=== PATIENT | female | born 1965 | race Two or more races ===

== ENCOUNTER 2017-03-28 09:14 | Inpatient (IN) | payer OTHER ==
[2017-03-28 09:57] VITALS: BMI 31.8
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
[2017-03-28] MEDS ORDERED: LOPERAMIDE HCL 2 MG CAPSULE PO PRN (10:20)
[2017-03-28] MEDS ORDERED: P-EPHED 60MG/TRIPROLIDI 2.5MG TABLET PO PRN (10:20)
[2017-03-28] MEDS ORDERED: chlordiazePOXIDE HCL 25 MG CAPSULE PO PRN (10:20)
[2017-03-28] MEDS ORDERED: MENTHOL/PHENOL 1 EACH UD MM PRN (10:20)
[2017-03-28] MEDS ORDERED: ACETAMINOPHEN 325 MG TABLET (FP) PO PRN (10:20)
[2017-03-28] MEDS ORDERED: MAGNESIUM HYDROX 2400MG/30ML ORAL SUSPENSION 30 ML CUP PO PRN (10:20)
[2017-03-28] MEDS ORDERED: NICOTINE POLACRILEX 4 MG GUM BUC PRN (10:20)
[2017-03-28] MEDS ORDERED: hydrOXYzine PAMOATE 50 MG CAPSULE (FP) PO PRN (10:20)
[2017-03-28] MEDS ORDERED: MAG HYDROX/AL HYDROX/SIMETH 30 ML UNIT-DOSE CUP PO PRN (10:20)
[2017-03-28] MEDS ORDERED: MAGNESIUM CITRATE 300 ML BOTTLE PO PRN (10:20)
[2017-03-28] MEDS ORDERED: guaiFENesin/D-METHORPHAN HB 10 ML UNIT-DOSE CUPS PO PRN (10:20)
[2017-03-28] MEDS ORDERED: INSULIN (NOVOLOG) ASPART 100 UNITS/ML 10ML VIAL ONE (11:36)
[2017-03-28] MEDS: INSULIN SLIDING SCALE (NOVOLOG) 1 VIAL SQ SCH ×3 (11:41→22:25)
[2017-03-28] MEDS ORDERED: chlordiazePOXIDE HCL 25 MG CAPSULE PO ONE (12:00)
[2017-03-28] MEDS: ALBUTEROL SO4 18 GM HFA INHALER IH PRN (12:16)
[2017-03-28] MEDS: levETIRAcetam 500 MG TABLET (FP) PO SCH ×2 (12:16→22:20)
[2017-03-28] MEDS: chlordiazePOXIDE HCL 25 MG CAPSULE PO SCH ×2 (17:40→23:08)
[2017-03-28 18:12] LABS: URINE APPEARANCE SLCLOUDY; URINE BILIRUBIN NEGATIVE (NEGATIVE); URINE BLOOD NEGATIVE (NEGATIVE); URINE COLOR AMBER; URINE GLUCOSE (UA) NEGATIVE (NEGATIVE); URINE KETONE NEGATIVE (NEGATIVE); URINE LEUK ESTERASE NEGATIVE (NEGATIVE); URINE NITRITE NEGATIVE (NEGATIVE); URINE PROTEIN NEGATIVE (NEGATIVE); URINE UROBILINOGEN 4.0 E.U/dl mg/dL (0.2-1.0)
[2017-03-28 20:57] LABS: URINE LEUK ESTERASE Negative (NEGATIVE)
[2017-03-28] MEDS: THIAMINE HCL 100 MG TABLET (FP) PO SCH (22:20)
[2017-03-29] MEDS: chlordiazePOXIDE HCL 25 MG CAPSULE PO SCH ×4 (05:17→22:19)
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
[2017-03-29] MEDS: INSULIN SLIDING SCALE (NOVOLOG) 1 VIAL SQ SCH ×4 (07:00→22:19)
[2017-03-29 10:15] LABS: MCH 28.7 pg (25.7-33.7); MCHC 31.3 g/dl (32.0-36.0); MEAN CELL VOLUME 91.7 fl (80-96); MEAN PLT VOLUME 9.1 fl (7.5-11.1); PLATELET COUNT 72 K/MM3 (134-434); RDW 21.8 % (11.6-15.6); WHITE BLOOD COUNT 4.3 K/mm3 (4.0-10.0)
[2017-03-29 10:18] LABS: ALBUMIN 1.9 g/dl (3.4-5.0); ANION GAP 10 (8-16); BILIRUBIN,TOTAL 2.2 mg/dL (0.2-1.0); CALCIUM 7.8 mg/dL (8.5-10.1); CO2 25 mmol/L (21-32); CREATININE 0.5 mg/dL (0.55-1.02); GLUCOSE,RANDOM 99 mg/dL (74-106); SGOT/AST 113 U/L (15-37); SGPT/ALT 52 U/L (12-78); TOT PROT 5.9 g/dl (6.4-8.2)
[2017-03-29 10:19] LABS: ALK PHOS 222 U/L (45-117)
[2017-03-29] MEDS: PRENATAL VITAMINS W/ FOLIC ACID TABLET (FP) PO SCH (10:53)
[2017-03-29] MEDS: levETIRAcetam 500 MG TABLET (FP) PO SCH ×2 (10:54→22:18)
[2017-03-29] MEDS: ALBUTEROL SO4 18 GM HFA INHALER IH PRN (10:56)
[2017-03-29] MEDS ORDERED: POTASSIUM CHLORIDE TABS 20 MEQ TABLET.ER (FP) PO ONE (11:18)
[2017-03-29 11:48] LABS: ANISOCYTOSIS 0; HYPOCHROMIA 2+; MACROCYTOSIS 0; MICROCYTOSIS 0; POLYCHROMASIA 0; TARGET CELLS 2+
[2017-03-29] MEDS ORDERED: INSULIN (NOVOLOG) ASPART 100 UNITS/ML 10ML VIAL ONE (11:57)
[2017-03-29] MEDS: ESCITALOPRAM OXALATE 10 MG TABLET (FP) PO SCH (11:58)
--- NOTE | 2017-03-29 12:47 | PN ---
[facility] CIWA - CIWA Score Nausea/Vomitin-Mild Nausea/No Vomiting Muscle Tremors: 3 Anxiety: 4-Mod. Anxious/Guarded Agitation: 3 Paroxysmal Sweats: 3 Orientation: 0-Oriented Tacttile Disturbances: 0-None Auditory Disturbances: 0-None Visual Disturbances: 0-None Headache: 0-None Present CIWA-Ar Total Score: 14 S Progress Note (SOAP) Subjective: Anxiety,tremors,sweating,interrupted sleep,restless Objective: 03/29/17 12:45 Vital Signs - 8 hr 03/29/17 03/29/17 06:49 11:36 Temperature 97.7 F 98 F Pulse Rate 74 85 Respiratory 18 18 Rate Blood Pressure 128/83 137/82 Laboratory Tests 03/28/17 03/28/17 03/28/17 10:38 16:36 17:58 WBC RBC Hgb Hct MCV MCH MCHC RDW Plt Count MPV Hypochromia Polychromasia Anisocytosis Microcytosis Macrocytosis Target Cells Sodium Potassium Chloride Carbon Dioxide Anion Gap BUN Creatinine Creat Clearance w eGFR POC Glucometer 197 130 Random Glucose Calcium Total Bilirubin AST ALT Alkaline Phosphatase Total Protein Albumin Urine Color Jayshree Urine Appearance Slcloudy Urine pH 6.0 Ur Specific [place] 1.018 Urine Protein Negative Urine Glucose (UA) Negative Urine Ketones Negative Urine Blood Negative Urine Nitrite Negative Urine Bilirubin Negative Urine Urobilinogen 4.0 e.u/dl H Ur Leukocyte Esterase Negative RPR Titer 03/28/17 03/29/17 03/29/17 21:33 05:16 07:40 WBC 4.3 RBC 3.70 Hgb 10.6 L Hct 33.9 MCV 91.7 MCH 28.7 MCHC 31.3 L RDW 21.8 H Plt Count 72 L MPV 9.1 Hypochromia 2+ Polychromasia 0 Anisocytosis 0 Microcytosis 0 Macrocytosis 0 Target Cells 2+ Sodium Potassium Chloride Carbon Dioxide Anion Gap BUN Creatinine Creat Clearance w eGFR POC Glucometer 111 109 Random Glucose Calcium Total Bilirubin AST ALT Alkaline Phosphatase Total Protein Albumin Urine Color Urine Appearance Urine pH Ur Specific [place] Urine Protein Urine Glucose (UA) Urine Ketones Urine Blood Urine Nitrite Urine Bilirubin Urine Urobilinogen Ur Leukocyte Esterase RPR Titer 03/29/17 03/29/17 03/29/17 07:40 07:40 11:47 WBC RBC Hgb Hct MCV MCH MCHC RDW Plt Count MPV Hypochromia Polychromasia Anisocytosis Microcytosis Macrocytosis Target Cells Sodium 141 Potassium 2.8 L* Chloride 106 Carbon Dioxide 25 Anion Gap 10 BUN 4 L Creatinine 0.5 L Creat Clearance w eGFR > 60 POC Glucometer 157 Random Glucose 99 Calcium 7.8 L Total Bilirubin 2.2 H AST 113 H ALT 52 Alkaline Phosphatase 222 H Total Protein 5.9 L Albumin 1.9 L Urine Color Urine Appearance Urine pH Ur Specific [place] Urine Protein Urine Glucose (UA) Urine Ketones Urine Blood Urine Nitrite Urine Bilirubin Urine Urobilinogen Ur Leukocyte Esterase RPR Titer Nonreactive labs noted, K+ 2.8, H/H 10.6/33.9. Pt. will be started on potassium replacement Assessment: 03/29/17 12:47 Withdrawal sx. Plan: Continue detox
--- NOTE | 2017-03-29 17:15 | EKG ---
Test Reason : Blood Pressure : / mmHG Vent. Rate : 081 BPM Atrial Rate : 081 BPM P-R Int : 144 ms QRS Dur : 088 ms QT Int : 398 ms P-R-T Axes : 040 -10 028 degrees QTc Int : 462 ms NORMAL SINUS RHYTHM MODERATE VOLTAGE CRITERIA FOR LVH, MAY BE NORMAL VARIANT BORDERLINE ECG NO PREVIOUS ECGS AVAILABLE Confirmed by AP WHITMORE MD ([id number]) on 03/29/2017 5:14:57 PM Referred By: Zoraida TYSON Confirmed By:AP WHITMORE MD
[2017-03-29] MEDS ORDERED: ZOLPIDEM TARTRATE 5 MG TABLET PO PRN (22:00)
[2017-03-29] MEDS: THIAMINE HCL 100 MG TABLET (FP) PO SCH (22:17)
[2017-03-29] MEDS: POTASSIUM CHLORIDE TABS 20 MEQ TABLET.ER (FP) PO SCH (22:18)
[2017-03-30] MEDS: chlordiazePOXIDE HCL 25 MG CAPSULE PO SCH ×2 (05:08→10:06)
[2017-03-30] MEDS: INSULIN SLIDING SCALE (NOVOLOG) 1 VIAL SQ SCH ×2 (06:06→11:23)
[2017-03-30] MEDS: ESCITALOPRAM OXALATE 10 MG TABLET (FP) PO SCH (10:05)
[2017-03-30] MEDS: levETIRAcetam 500 MG TABLET (FP) PO SCH (10:05)
[2017-03-30] MEDS: POTASSIUM CHLORIDE TABS 20 MEQ TABLET.ER (FP) PO SCH (10:06)
[2017-03-30] MEDS: PRENATAL VITAMINS W/ FOLIC ACID TABLET (FP) PO SCH (10:06)
--- NOTE | 2017-03-30 10:36 | PN ---
[facility] CIWA - CIWA Score Nausea/Vomitin Muscle Tremors: 2 Anxiety: 2 Agitation: 2 Paroxysmal Sweats: 3 Orientation: 0-Oriented Tacttile Disturbances: 1-Very Mild Itch/Numbness Auditory Disturbances: 0-None Visual Disturbances: 0-None Headache: 0-None Present CIWA-Ar Total Score: 12 [facility] Progress Note (SOAP) Subjective: interrupted sleep, sweats, diarrhea Objective: 03/30/17 10:33 Vital Signs Temperature 97.1 F L 03/30/17 09:27 Pulse Rate 80 03/30/17 09:27 Respiratory Rate 16 03/30/17 09:27 Blood Pressure 128/87 03/30/17 09:27 O2 Sat by Pulse Oximetry (%) Laboratory Tests 03/28/17 03/28/17 03/28/17 10:38 16:36 17:58 WBC RBC Hgb Hct MCV MCH MCHC RDW Plt Count MPV Hypochromia Polychromasia Anisocytosis Microcytosis Macrocytosis Target Cells Sodium Potassium Chloride Carbon Dioxide Anion Gap BUN Creatinine Creat Clearance w eGFR POC Glucometer 197 130 Random Glucose Calcium Total Bilirubin AST ALT Alkaline Phosphatase Total Protein Albumin Urine Color Jayshree Urine Appearance Slcloudy Urine pH 6.0 Ur Specific [place] 1.018 Urine Protein Negative Urine Glucose (UA) Negative Urine Ketones Negative Urine Blood Negative Urine Nitrite Negative Urine Bilirubin Negative Urine Urobilinogen 4.0 e.u/dl H Ur Leukocyte Esterase Negative RPR Titer 03/28/17 03/29/17 03/29/17 21:33 05:16 07:40 WBC 4.3 RBC 3.70 Hgb 10.6 L Hct 33.9 MCV 91.7 MCH 28.7 MCHC 31.3 L RDW 21.8 H Plt Count 72 L MPV 9.1 Hypochromia 2+ Polychromasia 0 Anisocytosis 0 Microcytosis 0 Macrocytosis 0 Target Cells 2+ Sodium Potassium Chloride Carbon Dioxide Anion Gap BUN Creatinine Creat Clearance w eGFR POC Glucometer 111 109 Random Glucose Calcium Total Bilirubin AST ALT Alkaline Phosphatase Total Protein Albumin Urine Color Urine Appearance Urine pH Ur Specific [place] Urine Protein Urine Glucose (UA) Urine Ketones Urine Blood Urine Nitrite Urine Bilirubin Urine Urobilinogen Ur Leukocyte Esterase RPR Titer 03/29/17 03/29/17 03/29/17 07:40 07:40 11:47 WBC RBC Hgb Hct MCV MCH MCHC RDW Plt Count MPV Hypochromia Polychromasia Anisocytosis Microcytosis Macrocytosis Target Cells Sodium 141 Potassium 2.8 L* Chloride 106 Carbon Dioxide 25 Anion Gap 10 BUN 4 L Creatinine 0.5 L Creat Clearance w eGFR > 60 POC Glucometer 157 Random Glucose 99 Calcium 7.8 L Total Bilirubin 2.2 H AST 113 H ALT 52 Alkaline Phosphatase 222 H Total Protein 5.9 L Albumin 1.9 L Urine Color Urine Appearance Urine pH Ur Specific [place] Urine Protein Urine Glucose (UA) Urine Ketones Urine Blood Urine Nitrite Urine Bilirubin Urine Urobilinogen Ur Leukocyte Esterase RPR Titer Nonreactive 03/29/17 03/29/17 03/30/17 16:30 22:16 05:07 WBC RBC Hgb Hct MCV MCH MCHC RDW Plt Count MPV Hypochromia Polychromasia Anisocytosis Microcytosis Macrocytosis Target Cells Sodium Potassium Chloride Carbon Dioxide Anion Gap BUN Creatinine Creat Clearance w eGFR POC Glucometer 137 162 97 Random Glucose Calcium Total Bilirubin AST ALT Alkaline Phosphatase Total Protein Albumin Urine Color Urine Appearance Urine pH Ur Specific [place] Urine Protein Urine Glucose (UA) Urine Ketones Urine Blood Urine Nitrite Urine Bilirubin Urine Urobilinogen Ur Leukocyte Esterase RPR Titer pt lying in bed appearing tired Assessment: 03/30/17 10:34 withdrawal sx's hypokalemia anemia Plan: cont. detox increase fluids imodium prn cont k replacement
[2017-03-30 14:52] VITALS: BP 145/89; PULSE 78; TEMP 96.5
--- NOTE | 2017-03-30 15:29 | DS ---
[facility] Detox Discharge Summary Admission Date: 03/28/17 Discharge Date: 03/30/17 - History Present History: Alcohol Dependence - Physical Exam Results Vital Signs: Vital Signs Temperature 96.5 F L 03/30/17 14:51 Pulse Rate 78 03/30/17 14:51 Respiratory Rate 16 03/30/17 14:51 Blood Pressure 145/89 03/30/17 14:51 O2 Sat by Pulse Oximetry (%) - Treatment Hospital Course: Detox Protocol Followed - Medication Discharge Medications: Ambulatory Orders Albuterol Sulfate Inhaler - [Ventolin Hfa Inhaler -] 1 - 2 inh PO Q4H PRN Docusate Sodium [Dok] 100 mg PO BID 03/20/17 Ferrous Sulfate [Feosol] 325 mg PO BID 03/20/17 Folic Acid - 1 mg PO DAILY 03/20/17 Levetiracetam [Keppra -] 750 mg PO BID 03/20/17 Multivitamin [One Daily] 1 each PO DAILY 03/20/17 Phenyleph/Mineral Oil/Petrolat [Major-Prep Hemorrhoidal Oint] 57 gm RC BID 03/20 Potassium Chloride [Klor-Con] 20 meq PO DAILY 03/20/17 Sodium Chloride [Saline Nasal [place]] 45 ml NS QID 03/20/17 Thiamine Mononitrate [Vitamin B-1] 100 mg PO DAILY 03/20/17 Fluticasone Propionate [Flovent Hfa] 110 mcg IH DAILY 03/28/17 Escitalopram Oxalate [Lexapro -] 10 mg PO DAILY #30 tablet 03/29/17 - Diagnosis (1) Hypokalemia Status: Acute (2) Alcohol dependence with uncomplicated withdrawal Status: Chronic (3) Asthma Status: Chronic (4) Nicotine dependence Status: Chronic Qualifiers: Nicotine product type: cigarettes Substance use status: uncomplicated Qualified Code(s): F17.210 - Nicotine dependence, cigarettes, uncomplicated - AMA Did Patient Leave Against Medical Advice: Yes (didn't want to stay because today is Xmas)
[2017-03-30] MEDS ORDERED: chlordiazePOXIDE 5 MG CAPSULE PO SCH (17:00)
[2017-03-31] MEDS ORDERED: chlordiazePOXIDE HCL 10 MG CAPSULE PO SCH (17:00)
== END 2017-03-30 14:55 | disposition left against medical advice (07) | DRG 770 ==
LOC: YASAS 09:14 → Y6N 10:48
PROVIDERS: ADMIT Internal Medicine; ATTEND Internal Medicine
PROC: HZ2ZZZZ Detoxification Services for Substance Abuse Treatment (ICD-10-PCS; principal; 2017-03-28)
DX: F10.230 Alcohol dependence with withdrawal, uncomplicated (principal); F10.24 Alcohol dependence with alcohol-induced mood disorder; F10.282 Alcohol dependence with alcohol-induced sleep disorder; F17.210 Nicotine dependence, cigarettes, uncomplicated; F33.2 Major depressive disorder, recurrent severe without psychotic features; E87.6 Hypokalemia; J45.909 Unspecified asthma, uncomplicated; D64.9 Anemia, unspecified; K70.30 Alcoholic cirrhosis of liver without ascites; R73.03 Prediabetes; Z86.69 Personal history of other diseases of the nervous system and sense organs; Z88.0 Allergy status to penicillin; Z88.1 Allergy status to other antibiotic agents
CPT/HCPCS: 36415; 80053; 81003; 85027; 86593; 93005; 93010